=== PATIENT | female | born 1995 | race Caucasian/White ===

== ENCOUNTER 2023-06-15 20:41 | Emergency (ER) | payer MEDICAID, SELFPAY ==
[2023-06-15 20:44] VITALS: BP 121/53; PULSE 65; RESP 18; TEMP 36.7; O2SAT 98
--- NOTE | 2023-06-15 20:53 | CT_ITS ---
The [address] [address] Patient Name: ARISTIDES VASQUES MRN: [id number] date: 1995 Sex: F Assigned Patient Location: ER Current Patient Location: ER Accession/Order Number: [id number] Exam Date: 06/15/2023 21:15 Report Date: 06/15/2023 22:34 At the request of: JAZMINE DEL ROSARIO Procedure: CT elbow LT wo con EXAM: CT elbow LT wo con HISTORY: Swelling left antecubital area COMPARISON: None. TECHNIQUE: Multiplanar, multi sequential MRI sequences were performed FINDINGS: No fracture, dislocation, subluxation or osseous lesion. No elbow effusion. The superficial subcutaneous soft tissues are free of edema, hematoma, mass or cyst. The visualized muscles exhibit no gross abnormality. CT/CT elbow LT wo con IMPRESSION: No visualized abnormality. Electronically authenticated by: ANGEL GIMENEZ Date: 06/15/2023 22:34
--- NOTE | 2023-06-15 20:57 | ED_ITS ---
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 She states she has a swollen area to the left antecubital area of the arm. She denies any mechanism of injury or trauma. She denies any pain to the left arm. She reported heaviness when trying to lift her arm today at work. She is not concerned for . She has had no redness, color change of the left arm. She denies any pain in the left shoulder or neck. No numbness or tingling. Related Data Home Medications Medication Instructions Recorded Confirmed levonorgestrel 0.15 mg-ethinyl 1 tab PO DAILY 06/15/23 06/15/23 estradiol 30 mcg tablets,3 mos pack(91) norelgestromin 150 mcg-e.estradiol patch 06/15/23 35 mcg/24 hr weekly transderm patch (Xulane) Previous Rx's Medication Instructions Recorded methocarbamol 750 mg tablet 750 mg PO TID PRN pain #20 tabs 06/15/23 methylprednisolone 4 mg tablets in See Rx Instructions .Route 06/15/23 a dose pack (Medrol (Eitan)) .COMPLEX #21 ea Allergies Allergy/AdvReac Type Severity Reaction Status Date / Time No Known Drug Allergies Allergy Verified 06/15/23 20:48 Review of Systems ROS Constitutional Denies: fever or chills Ears, nose, mouth, and throat Denies: throat pain or neck pain Cardiovascular Denies: chest pain Respiratory Denies: shortness of breath or cough Gastrointestinal Denies: nausea or vomiting Musculoskeletal Denies: back pain or neck pain Integumentary/Breast Denies: rash Neurological Denies: headache Hematologic/Lymphatic Denies: easy bruising Exam Narrative Exam Narrative: Gen.: Awake, alert, in no distress Head: Normocephalic, atraumatic ENT: Moist mucous membranes Respiratory: No respiratory distress Extremities: Moves extremities equally, normal biceps tendon strength in the left upper extremity with 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 2+ left radial pulse. Normal capillary refill of all fingers in the left hand, less than three seconds. Mild deficit in strength compared to the right side when lifting the left arm. Mild soft tissue swelling appreciated in the left antecubital area with no erythema, induration or abscess noted. No circumferential swelling of the left elbow. Psych: Normal mood and affect Neuro: No focal neuro deficit Skin: Warm, dry, intact Constitutional Vital Signs, click to edit/add: Last Vital Signs Temp 98.0 F 06/15/23 20:44 Pulse 65 06/15/23 20:44 Resp 18 06/15/23 20:44 BP 121/53 H 06/15/23 20:44 Pulse Ox 98 06/15/23 20:44 O2 Del Method Room Air 06/15/23 20:44 Course Vital Signs Vital signs: Vital Signs Temperature 98.0 F 06/15/23 20:44 Pulse Rate 65 06/15/23 20:44 Respiratory Rate 18 06/15/23 20:44 Blood Pressure 121/53 H 06/15/23 20:44 Pulse Oximetry 98 06/15/23 20:44 Oxygen Delivery Method Room Air 06/15/23 20:44 Temperature 98.0 F 06/15/23 20:44 Pulse Rate 65 06/15/23 20:44 Respiratory Rate 18 06/15/23 20:44 Blood Pressure 121/53 H 06/15/23 20:44 Pulse Oximetry 98 06/15/23 20:44 Oxygen Delivery Method Room Air 06/15/23 20:44 MDM - Extremity (Nontraumatic) MDM Narrative Medical decision making narrative: 2109: patient with no significant focal neuro deficit in the Emergency Room, mild weakness of the left upper extremity. Ultrasound is unavailable this evening to evaluate the area of swelling to the left antecubital area so the patient was sent for CT of the elbow with CT of the head and C-spine to rule out any other occult issue causing her weakness. She has no evidence of vascular compromise. No complaints of pain in the Emergency Room. CTs are pending at this time in case is turned over to attending physician for disposition. Discharge Plan Discharge Chief Complaint: Extremity Problem, Nontraumatic Clinical Impression: Left arm weakness Patient Disposition: Home, Self-Care Time of Disposition Decision: 22:48 Condition: Good Mode of Transportation: Private Vehicle Prescriptions / Home Meds: New methylprednisolone [Medrol (Eitan)] 4 mg tablets,dose pack See Rx Instructions .ROUTE .COMPLEX Qty: 21 0RF Rx Instructions: Taper as directed methocarbamol 750 mg tablet 750 mg PO TID PRN (Reason: pain) Qty: 20 0RF No Action Xulane 150-35 mcg/24 hr patch weekly Hold Instructions: Order Change levonorgestrel-ethinyl estrad 0.15 mg-30 mcg (91) tablets,dose pack,3 month 1 tab PO DAILY Stand Alone Forms: Portal Instructions Referrals: Physician,Non-Staff, MD [Primary Care Provider] - 1 week Discharge Date/Time: 06/15/23 23:05 Documented by User: Latanya Deras MD 06/16/23 01:48 HPI - Extremity Problem General Chief complaint: Extremity Problem, Nontraumatic Stated complaint: ARM PAIN, WEAKNESS, NUMBNESS Time Seen by Provider: 06/15/23 20:46 Related Data Home Medications Medication Instructions Recorded Confirmed levonorgestrel 0.15 mg-ethinyl 1 tab PO DAILY 06/15/23 06/15/23 estradiol 30 mcg tablets,3 mos pack(91) norelgestromin 150 mcg-e.estradiol patch 06/15/23 35 mcg/24 hr weekly transderm patch (Xulane) Previous Rx's Medication Instructions Recorded methocarbamol 750 mg tablet 750 mg PO TID PRN pain #20 tabs 06/15/23 methylprednisolone 4 mg tablets in See Rx Instructions .Route 06/15/23 a dose pack (Medrol (Eitan)) .COMPLEX #21 ea Allergies Allergy/AdvReac Type Severity Reaction Status Date / Time No Known Drug Allergies Allergy Verified 06/15/23 20:48 Exam Constitutional Vital Signs, click to edit/add: Last Vital Signs Temp 98.0 F 06/15/23 20:44 Pulse 65 06/15/23 20:44 Resp 18 06/15/23 20:44 BP 121/53 H 06/15/23 20:44 Pulse Ox 98 06/15/23 20:44 O2 Del Method Room Air 06/15/23 20:44 Course Vital Signs Vital signs: Vital Signs Temperature 98.0 F 06/15/23 20:44 Pulse Rate 65 06/15/23 20:44 Respiratory Rate 18 06/15/23 20:44 Blood Pressure 121/53 H 06/15/23 20:44 Pulse Oximetry 98 06/15/23 20:44 Oxygen Delivery Method Room Air 06/15/23 20:44 Temperature 98.0 F 06/15/23 20:44 Pulse Rate 65 06/15/23 20:44 Respiratory Rate 18 06/15/23 20:44 Blood Pressure 121/53 H 06/15/23 20:44 Pulse Oximetry 98 06/15/23 20:44 Oxygen Delivery Method Room Air 06/15/23 20:44 MDM - Extremity (Nontraumatic) MDM Narrative Medical decision making narrative: 2109: patient with no significant focal neuro deficit in the Emergency Room, mild weakness of the left upper extremity. Ultrasound is unavailable this evening to evaluate the area of swelling to the left antecubital area so the patient was sent for CT of the elbow with CT of the head and C-spine to rule out any other occult issue causing her weakness. She has no evidence of vascular compromise. No complaints of pain in the Emergency Room. CTs are pending at this time in case is turned over to attending physician for disposition. Attending physician attestation I have seen and evaluated this patient. I have reviewed the mid-level provider?s documentation medical decision making and treatment plan. I agree with the mid- level provider?s all CT results were discussed with the patient. Patient was seen and evaluated by me. History and physical are consistent with overuse arm injury. The patient does not have any edema, no palpable cords, radial pulse +2, normal sensation to the thumb, middle finger, and pinky. Able to oppose all digits with thumb. No erythema or signs of trauma or infection. She has full range of motion.Patient will be discharged to home with Robaxin, and medrol dose pack. At this time the patient is without objective evidence of an acute process requiring hospitalization or inpatient management. The patient has remained hemodynamically stable. No additional indication for emergent studies at this time. I answered all questions. Discussed discharge instructions including standard anticipatory guidance and what should prompt a return to the emergency department, including if they get worse are not getting better or develops any new or concerning symptoms. I've given them specific time frame in which to follow-up, and who to follow-up with. The patient demonstrates understanding. Patient is nontoxic and stable for discharge with outpatient follow-up. This note was created with the assistance of a speech recognition program. Although the intention is to generate documents that actually reflects the content of the visit, no guarantees can be provided that every mistake has been identified and corrected by editing. Discharge Plan Discharge Chief Complaint: Extremity Problem, Nontraumatic Clinical Impression: Left arm weakness Patient Disposition: Home, Self-Care Time of Disposition Decision: 22:48 Condition: Good Mode of Transportation: Private Vehicle Prescriptions / Home Meds: New methylprednisolone [Medrol (Eitan)] 4 mg tablets,dose pack See Rx Instructions .ROUTE .COMPLEX Qty: 21 0RF Rx Instructions: Taper as directed methocarbamol 750 mg tablet 750 mg PO TID PRN (Reason: pain) Qty: 20 0RF No Action Xulane 150-35 mcg/24 hr patch weekly Hold Instructions: Order Change levonorgestrel-ethinyl estrad 0.15 mg-30 mcg (91) tablets,dose pack,3 month 1 tab PO DAILY Stand Alone Forms: Portal Instructions Referrals: Physician,Non-Staff, MD [Primary Care Provider] - 1 week Discharge Date/Time: 06/15/23 23:05
--- NOTE | 2023-06-15 21:02 | CT_ITS ---
The [address] [address] Patient Name: ARISTIDES VASQUES MRN: [id number] date: 1995 Sex: F Assigned Patient Location: ER Current Patient Location: [facility] Accession/Order Number: [id number] Exam Date: 06/15/2023 21:15 Report Date: 06/15/2023 21:56 At the request of: JAZMINE DEL ROSARIO Procedure: CT head/brain wo con EXAM: CT head/brain wo con HISTORY: Left arm weakness COMPARISON: None. TECHNIQUE: Axial CT scans through the head were obtained without IV contrast administration. Dose reduction techniques were achieved by using: automated exposure control and/or adjustment of mA and /or kV according to patient size and/or use of iterative reconstruction technique. FINDINGS: There is no acute intracranial hemorrhage or abnormal extra-axial fluid collection. No mass effect or midline shift is seen. There is no evidence of large acute territorial infarction. There is no hydrocephalus. To the limit of CT, the posterior fossa appears unremarkable. The calvaria and extra cranial soft tissues are unremarkable. The visualized orbits show no abnormal mass. The visualized paranasal sinuses show no air-fluid level. Mastoid air cells are clear. CT/CT head/brain wo con IMPRESSION: No acute intracranial process. Electronically authenticated by: JOSIE VILLANUEVA Date: 06/15/2023 21:56
--- NOTE | 2023-06-15 21:15 | CT_ITS ---
The [address] [address] Patient Name: ARISTIDES VASQUES MRN: [id number] date: 1995 Sex: F Assigned Patient Location: ER Current Patient Location: ED.MAIN Accession/Order Number: [id number] Exam Date: 06/15/2023 21:15 Report Date: 06/15/2023 21:55 At the request of: JAZMINE DEL ROSARIO Procedure: CT cervical spine wo con EXAM: CT cervical spine wo con HISTORY: Left arm weakness COMPARISON: None. TECHNIQUE: Axial CT imaging is performed of the cervical spine. Sagittal and coronal reformatted/reconstructed sequencing was additionally performed. FINDINGS: Age-indeterminate straightening of the normal cervical lordosis. Vertebral body heights and alignments exhibit no fracture or listhesis. The intervertebral disc spaces and facet joints are unremarkable. The dens and lateral masses of C1 are symmetric. No prevertebral soft tissue edema. The visualized osseous skull base is unremarkable. The visualized airway, thoracic inlet and pulmonary apices are additionally unremarkable. CT/CT cervical spine wo con IMPRESSION: Age-indeterminate straightening of the normal cervical lordosis. This could account for patient's symptomatology. Electronically authenticated by: ANGEL GIMENEZ Date: 06/15/2023 21:55
--- NOTE | 2023-06-15 21:27 | PC.NURSE ---
Patient states she has left upper extremity has been feeling heavy and numb since yesterday. 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 denies any pain. patient does have golf ball sized hardened nodule on inner lateral side of elbow. no redness or pain. patient states she did have a headache yesterday but has since went away. no meds taken
== END 2023-06-15 23:05 | disposition home or self-care (01) ==
PROVIDERS: Emergency Provider Emergency Medicine
DX: R53.1 Weakness (principal); Z79.899 Other long term (current) drug therapy
CPT/HCPCS: 70450; 72125; 73200; 99284

== ENCOUNTER 2025-01-16 21:14 | Emergency (ER) | payer MEDICAID, SELFPAY ==
[2025-01-16 21:21] VITALS: BP 131/76; PULSE 78; TEMP 37.1; O2SAT 99; BMI 31.6
[2025-01-16 21:57] LABS: Influenza Virus A Antigen Negative; Influenza Virus B Antigen Negative; Internal Control Within Normal Limits
[2025-01-16 21:58] LABS: Internal Control Within Normal Limits; Respiratory Syncytial Virus Not Detected (NOT DETECTE); SARS-CoV-2 Ag NEGATIVE (NEGATIVE)
--- NOTE | 2025-01-16 23:05 | ED.URI1 ---
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 She denies any fever. She has no abdominal pain. She denies any nausea vomiting or diarrhea. She also states that for the past several days her hands have been swollen with a itchy rash. This also comes and goes and is not present currently. She denies any dizziness or syncope. She has no abdominal pain or back pain. Related Data Home Medications ?Medication ?Instructions ?Recorded ?Confirmed levonorgestrel 0.15 mg-ethinyl 1 tab PO DAILY 06/15/23 01/16/25 estradiol 30 mcg tablets,3 mos pack(91) Allergies Allergy/AdvReac Type Severity Reaction Status Date / Time No Known Drug Allergies Allergy Verified 01/16/25 21:24 Review of Systems ROS Status of ROS 10 or more systems reviewed and unremarkable except as noted in history and below PFSH PFS Social History Little interest or pleasure in doing things: not at all Feeling down, depressed, or hopeless: not at all Exam Narrative Exam Narrative: Vital signs and Nursing Notes reviewed: Patient is afebrile with a normal pulse, normal blood pressure, she is not hypoxic with pulse ox of 99% on room air General: Awake, alert, oriented, no acute distress, lying comfortably on the stretcher HEENT: Normocephalic atraumatic, mucous membranes are moist and pink, eyes are clear, normal conjunctiva, vision is grossly intact, posterior pharynx is normal in appearance. Tympanic membranes are normal bilaterally Neck: Supple, no meningeal signs, no anterior or posterior cervical lymphadenopathy Chest: Lungs are clear to auscultation but slightly diminished there is no wheezing rhonchi or rales appreciated no accessory muscle use, patient is speaking in complete sentences-no chest wall tenderness to palpation CVS: Regular rate and rhythm S1-S2, no murmurs rubs or gallops, pulses are brisk and equal bilaterally ABD: Soft, nondistended, nontender, no rebound guarding or rigidity, bowel sounds are normal, no pulsatile masses appreciated Extremities: Moving all extremities, no lower extremity tenderness or swelling noted, negative Homans' sign, pulses are brisk and equal bilaterally Skin: Normal in appearance without rash,pallor, petechiae or purpura Neuro: No focal deficits Constitutional Vital Signs, click to edit/add: Last Vital Signs Temp 98.8 F 01/16/25 21:21 Pulse 77 01/16/25 23:38 Resp 16 01/16/25 23:38 BP 131/76 01/16/25 21:21 Pulse Ox 99 01/16/25 23:38 O2 Del Method Room Air 01/16/25 23:38 Course Vital Signs Vital signs: Vital Signs Temperature 98.8 F 01/16/25 21:21 Pulse Rate 78 01/16/25 21:21 Respiratory Rate 18 01/16/25 21:21 Blood Pressure 131/76 01/16/25 21:21 Pulse Oximetry 99 01/16/25 21:21 Temperature 98.8 F 01/16/25 21:21 Pulse Rate 77 01/16/25 23:38 Respiratory Rate 16 01/16/25 23:38 Blood Pressure 131/76 01/16/25 21:21 Pulse Oximetry 99 01/16/25 23:38 Oxygen Delivery Method Room Air 01/16/25 23:38 MDM - URI/Sore Throat MDM Narrative Medical decision making narrative: This 29-year-old female, non-smoker presents for evaluation of upper respiratory symptoms including pain in her ears, throat congestion, headaches, chest congestion. She does not smoke but is on control pills. She has not had a fever. 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 The symptoms are not present during her ER visit. The patient physical exam is benign. Her lungs are clear, tympanic membranes are normal. Posterior pharynx was normal. There was no neck pain or stiffness on her exam. She is not having any GI symptoms. She is negative for COVID, influenza and RSV. [place] testing is negative. Chest x-ray was reviewed by myself and does not show any acute findings. D-dimer is normal. Strep testing is negative. She will be discharged home with a prescription for an albuterol MDI. I explained to her she likely has a viral illness although it is not one of the 3 that we tested her here for 4 today. She was encouraged to drink plenty of fluids, use the inhaler as needed and return to the emergency department for worsening symptoms or any concerns. Lab Data Labs: Lab Results 01/16/25 01/16/25 01/17/25 Range/Units 21:30 23:30 00:10 D-Dimer 0.40 (<=0.59) mg/L FEU Monoscreen Negative (NEGATIVE) Influenza Type A Ag Negative Influenza Type B Ag Negative RSV Antigen Not detected (NOT DETECTE) SARS-CoV-2 Ag (CV2AG) Negative (NEGATIVE) Streptococcus Screen Negative Discharge Plan Discharge Chief Complaint: Upper Respiratory Infection Clinical Impression: Viral infection, Upper respiratory infection Patient Disposition: Home, Self-Care Time of Disposition Decision: 00:37 Condition: Good Prescriptions / Home Meds: No Action levonorgestrel-ethinyl estrad 0.15 mg-30 mcg (91) tablets,dose pack,3 month 1 tab PO DAILY Print Language: Cypriot Instructions: Upper Respiratory Infection (ED) Referrals: Physician,Non-Staff, MD [Primary Care Provider] - 1 week
[2025-01-16] MEDS: IPRATROPIUM/ALBUTEROL SULFATE 3 ML AMPUL.NEB IH (23:35)
[2025-01-16 23:38] VITALS: PULSE 77; O2SAT 99
[2025-01-16 23:56] LABS: Internal Control Within Normal Limits; Mono Screen NEGATIVE (NEGATIVE)
[2025-01-17 00:26] LABS: Internal Control Within Normal Limits; Strep A Antigen Screen Negative
== END 2025-01-17 00:45 | disposition home or self-care (01) ==
PROVIDERS: Emergency Provider Emergency Medicine
DX: J06.9 Acute upper respiratory infection, unspecified (principal); B34.9 Viral infection, unspecified
CPT/HCPCS: 36415; 71045; 71046; 85378; 86308; 87070; 87420; 87804; 87811; 87880; 94640; 99285